=== PATIENT | female | born 1945 | race Caucasian/White ===

== ENCOUNTER 2018-01-06 14:06 | Outpatient (CLI) | payer MEDICARE ==
[2018-01-06 17:52] LABS: INR 1.7 (0.8-1.2); PT - PROTHROMBIN TIME 18.8 secs (9.9-12.6)
== END 2018-01-06 14:07 | disposition home or self-care (01) ==
LOC: LAB.F 14:06
PROVIDERS: ATTEND Emergency Medicine
DX: Z79.01 Long term (current) use of anticoagulants (principal)
CPT/HCPCS: 36415; 85610

== ENCOUNTER → 2018-01-10 | Outpatient (CLI) | payer MEDICARE ==
[2018-01-10 18:11] LABS: INR 2.1 (0.8-1.2); PT - PROTHROMBIN TIME 23.8 secs (9.9-12.6)
== END ==
LOC: LAB.F 08:00
PROVIDERS: ATTEND Emergency Medicine
DX: D68.51 Activated protein C resistance (principal)
CPT/HCPCS: 36415; 85610

== ENCOUNTER 2018-01-13 11:15 | Outpatient (CLI) | payer MEDICARE ==
[2018-01-13 18:00] LABS: INR 2.3 (0.8-1.2)
== END 2018-01-13 11:16 | disposition home or self-care (01) ==
LOC: LAB.F 11:15
PROVIDERS: ATTEND Emergency Medicine
DX: D68.51 Activated protein C resistance (principal)
CPT/HCPCS: 36415; 85610

== ENCOUNTER 2018-01-17 10:55 | Outpatient (CLI) | payer MEDICARE | END 2018-01-17 10:56 | disposition home or self-care (01) | LOC: LAB.F 10:55 | PROVIDERS: ATTEND Emergency Medicine | DX: D68.51 Activated protein C resistance (principal) | CPT/HCPCS: 36415; 85610 ==

== ENCOUNTER 2023-08-01 10:28 | Outpatient (CLI) | payer MEDICARE ==
--- NOTE | 2023-08-01 18:32 | XRAY Report ---
PROCEDURE: Chest 2V INDICATIONS: ACUTE COUGH TECHNIQUE: 2 views of the chest were acquired. COMPARISON: None. FINDINGS: Surgical changes and devices: None. Lungs and pleura: No pleural effusions or pneumothorax. Lungs are clear. Mediastinum: Mediastinal contours appear normal. Heart size is normal. Bones and chest wall: No suspicious bony lesions. Overlying soft tissues appear unremarkable. IMPRESSION: No acute cardiopulmonary process. Reviewed by: Elliot Law MD on 08/01/2023 6:30 PM PDT Approved by: Elliot Law MD on 08/01/2023 6:30 PM PDT Station ID: [id number]
== END 2023-08-01 10:29 | disposition home or self-care (01) ==
LOC: DI.S 10:28
PROVIDERS: ATTEND Registered Nurse
DX: R05.1 Acute cough (principal)